=== PATIENT | male | born 1970 | race American Indian/Alaskan Native ===

== ENCOUNTER 2022-06-01 18:37 | Emergency (ER) | payer BC, OTHER ==
[~2022-06-01] VITALS: Ht 170.2 cm; Wt 89.2 kg
[2022-06-01] MEDS ORDERED: ATOR1TAB21 PO (18:44)
[2022-06-01] MEDS ORDERED: LEVO-89 PO (18:44)
[2022-06-01] MEDS ORDERED: CHLO125TA PO (18:44)
[2022-06-01] MEDS ORDERED: ATEN50TA2 PO (18:44)
[2022-06-01 19:24] VITALS: BP 147/88
[2022-06-01 19:46] LABS: BASO # 0.1 10^3/uL (0.0-0.2); BASO % 0.5 % (0.0-1.0); EOS # 0.2 10^3/uL (0.0-0.5); EOS % 2.3 % (0.0-3.0); HEMATOCRIT 42.6 % (42.0-52.0); HEMOGLOBIN 14.8 g/dl (13.5-17.5); LYMPH % 10.7 % (24.0-44.0); MEAN CORPUSCULAR HEMOGLOBIN 31.3 pg (27.0-33.0); MEAN CORPUSCULAR HGB CONC 34.7 g/dl (32.0-36.5); MEAN CORPUSCULAR VOLUME 90.1 fl (80.0-96.0); MONO # 0.6 10^3/uL (0.0-0.8); MONO % 5.8 % (2.0-8.0); NEUTROPHILS # 7.6 10^3/uL (1.5-8.5); NEUTROPHILS % 80.1 % (36.0-66.0); PLATELET COUNT, AUTOMATED 282 10^3/uL (150-450); RED BLOOD COUNT 4.73 10^6/uL (4.30-6.10); WHITE BLOOD COUNT 9.5 10^3/uL (4.0-10.0)
[2022-06-01 19:58] LABS: INR 0.92; PROTHROMBIN TIME 12.6 SECONDS (12.5-14.5)
[2022-06-01 19:59] LABS: PARTIAL THROMBOPLASTIN TIME 24.9 SECONDS (24.8-34.2)
[2022-06-01 20:13] LABS: BLOOD UREA NITROGEN 15 MG/DL (7-18); CARBON DIOXIDE LEVEL 28 MEQ/L (21-32); CHLORIDE LEVEL 106 MEQ/L (98-107); CREATININE FOR GFR 0.92 MG/DL (0.70-1.30); GLOMERULAR FILTRATION RATE > 60.0 (>56); GLUCOSE, FASTING 121 MG/DL (70-100); SODIUM LEVEL 139 MEQ/L (136-145)
[2022-06-01 20:30] VITALS: BP 150/101
[2022-06-01] MEDS ORDERED: MECL1TAB31 PO (22:33)
== END 2022-06-01 23:23 | disposition home or self-care (01) ==
LOC: M ED 18:37
DX: H81.4 Vertigo of central origin (principal); I10 Essential (primary) hypertension; E03.9 Hypothyroidism, unspecified; Z79.810 Long term (current) use of selective estrogen receptor modulators (SERMs); Z79.83 Long term (current) use of bisphosphonates; Z79.899 Other long term (current) drug therapy

== ENCOUNTER → 2022-10-23 | Outpatient (REF) | payer BC, OTHER ==
[~2022-10-23] MED LIST: ATEN50TA2 PO; ATOR1TAB21 PO; CHLO125TA PO; LEVO-89 PO; MECL1TAB31 PO
[2022-10-23 12:45] LABS: IMMUNOGLOBULIN A 194.2 MG/DL (40-350); IRON (FE) 109 UG/DL (65-175); PERCENT SATURATION 32.2 % (19.7-50.0); TOTAL IRON BINDING CAPACITY 339 UG/DL (250-425)
[2022-10-23 12:48] LABS: FERRITIN 276.8 NG/ML (10.5-307.3)
[2022-10-23 13:09] LABS: HEPATITIS B SURFACE ANTIGEN NEGATIVE (NEGATIVE)
[2022-10-23 13:31] LABS: HEPATITIS B CORE ANTIBODY IGM NEGATIVE (NEGATIVE); HEPATITIS C VIRUS ABY INDEX 0.1 INDEX (<0.8)
[2022-10-25 14:09] LABS: ENDOMYSIAL ABY IgA Negative (Negative); HBV HBV DNA not detected IU/mL (.); TISSUE TRANSGLUTAMINASE IgA <2 U/mL (0-3)
== END ==
LOC: M LAB REF 11:58
PROVIDERS: ATTEND Internal Medicine
DX: R94.5 Abnormal results of liver function studies (principal)

== ENCOUNTER → 2022-12-06 | Outpatient (CLI) | payer BC, OTHER ==
[2022-12-06 16:56] LABS: PERCENT SATURATION 33.1 % (19.7-50.0)
[2022-12-06 16:59] LABS: FERRITIN 433.4 NG/ML (10.5-307.3)
[2022-12-11 17:07] LABS: A1A FOR PHENOTYPE 161 mg/dL (101-187); CERULOPLASMIN 22.5 mg/dL (16.0-31.0)
== END ==
LOC: M WUC 11:58
PROVIDERS: ATTEND Internal Medicine
DX: R74.01 Elevation of levels of liver transaminase levels (principal); E03.9 Hypothyroidism, unspecified

== ENCOUNTER → 2022-12-08 | Outpatient (CLI) | payer BC, OTHER | LOC: M RAD 07:42 | PROVIDERS: ATTEND Internal Medicine | DX: R94.5 Abnormal results of liver function studies (principal); K76.0 Fatty (change of) liver, not elsewhere classified ==

== ENCOUNTER 2023-04-18 11:13 | Emergency (ER) | payer BC, OTHER ==
[~2023-04-18] VITALS: Ht 167.6 cm; Wt 83.1 kg
[~2023-04-18 11:13] MED LIST changes: +MECL-209 PO; -MECL1TAB31 PO
[2023-04-18] MEDS ORDERED: NS 1,000 ML IV SCH (12:15)
[2023-04-18 12:17] LABS: BASO % 0.7 % (0.0-1.0); EOS # 0.1 10^3/uL (0.0-0.5); EOS % 2.1 % (0.0-3.0); HEMATOCRIT 46.2 % (42.0-52.0); HEMOGLOBIN 16.3 g/dl (13.5-17.5); LYMPH # 1.5 10^3/uL (1.5-5.0); LYMPH % 26.4 % (24.0-44.0); MEAN CORPUSCULAR HEMOGLOBIN 30.5 pg (27.0-33.0); MEAN CORPUSCULAR HGB CONC 35.3 g/dl (32.0-36.5); MEAN CORPUSCULAR VOLUME 86.4 fl (80.0-96.0); MONO # 0.3 10^3/uL (0.0-0.8); MONO % 5.5 % (2.0-8.0); NEUTROPHILS # 3.8 10^3/uL (1.5-8.5); PLATELET COUNT, AUTOMATED 324 10^3/uL (150-450); RED BLOOD COUNT 5.35 10^6/uL (4.30-6.10); WHITE BLOOD COUNT 5.8 10^3/uL (4.0-10.0)
[2023-04-18] MEDS ORDERED: PANTOPRAZOLE 40MG VIAL IV ONE (12:20)
[2023-04-18 12:29] LABS: BLOOD UREA NITROGEN 14 MG/DL (9-23); CARBON DIOXIDE LEVEL 27 MMOL/L (20-31); CHLORIDE LEVEL 103 MMOL/L (98-107); CK-MB VALUE MASS 1.8 NG/ML (<3.6); CPK CREATINE PHOSPHOKINASE 188 U/L (46-171); CREATININE FOR GFR 0.81 MG/DL (0.70-1.30); GLOMERULAR FILTRATION RATE > 60.0 (>56); GLUCOSE, FASTING 155 MG/DL (60-100); MB/CK RELATIVE INDEX 0.95 (< OR =4); SODIUM LEVEL 137 MMOL/L (136-145)
[2023-04-18] MEDS ORDERED: POTASSIUM CHLORIDE 10MEQ SR TABLET PO ONE (12:40)
[2023-04-18 12:55] LABS: PROTHROMBIN TIME 12.9 SECONDS (12.5-14.5)
[2023-04-18 12:58] LABS: D-DIMER QUANT < 0.27 ug/mL (<0.5)
[2023-04-18] MEDS ORDERED: KCL 10MEQ/100ML SWI (KRUN) 10 MEQ in IV 1 EA IV ONE (13:00)
[2023-04-18] MEDS ORDERED: PROT1TAB2 PO (13:27)
[2023-04-18] MEDS ORDERED: POTA10CA60 PO (13:27)
[2023-04-18 13:38] VITALS: BP 140/78; TEMP 98.7; O2SAT 98
== END 2023-04-18 13:40 | disposition home or self-care (01) ==
LOC: M ED 11:13
DX: R07.9 Chest pain, unspecified (principal); E87.6 Hypokalemia; K21.9 Gastro-esophageal reflux disease without esophagitis; I10 Essential (primary) hypertension; E78.5 Hyperlipidemia, unspecified; E03.9 Hypothyroidism, unspecified; Z79.02 Long term (current) use of antithrombotics/antiplatelets; Z79.899 Other long term (current) drug therapy
CPT/HCPCS: 71045; 80048; 82550; 82553; 84484; 85025; 85379; 85610; 93005; 93041; 94760; 96365; 96375; 99285; C9113

== ENCOUNTER 2023-04-23 12:14 | Day surgery (SDC) | payer BC, OTHER ==
[~2023-04-23] VITALS: Ht 167.6 cm; Wt 81.6 kg
[~2023-04-23 12:14] MED LIST changes: +NS 1,000 ML IV ONE; +POTA10CA60 PO; +PROT1TAB2 PO
[2023-04-23] MEDS ORDERED: LIDOCAINE 2% 100MG/5ML SDV (FOR ANES.) As Ordered ONE (12:28)
[2023-04-23] MEDS ORDERED: propofoL 200 MG/20 ML VIAL As Ordered ONE ×2 (12:28→13:51)
[2023-04-23 13:59] VITALS: TEMP 97.2
[2023-04-23 14:20] VITALS: BP 124/82; O2SAT 96
== END 2023-04-23 14:36 | disposition home or self-care (01) ==
LOC: M OPP 12:14
PROVIDERS: ATTEND Internal Medicine Gastroenterology
DX: D12.0 Benign neoplasm of cecum (principal); K57.30 Diverticulosis of large intestine without perforation or abscess without bleeding; K64.0 First degree hemorrhoids

== ENCOUNTER → 2024-01-11 | Outpatient (CLI) | payer BC ==
[~2024-01-11] MED LIST changes: -NS 1,000 ML IV ONE; -POTA10CA60 PO; +POTA10CA70 PO
== END ==
LOC: M RAD 13:41
PROVIDERS: ATTEND Internal Medicine
DX: R22.1 Localized swelling, mass and lump, neck (principal)

== ENCOUNTER 2024-03-16 22:32 | Emergency (ER) | payer BC ==
[~2024-03-16] VITALS: Ht 167.6 cm; Wt 88.7 kg
[2024-03-17 02:28] LABS: BASO # 0.1 10^3/uL (0.0-0.2); BASO % 0.6 % (0.0-1.0); EOS # 0.4 10^3/uL (0.0-0.5); EOS % 4.6 % (0.0-3.0); HEMATOCRIT 50.4 % (42.0-52.0); HEMOGLOBIN 17.4 g/dl (13.5-17.5); LYMPH # 2.7 10^3/uL (1.5-5.0); LYMPH % 28.6 % (24.0-44.0); MEAN CORPUSCULAR HEMOGLOBIN 30.2 pg (27.0-33.0); MEAN CORPUSCULAR HGB CONC 34.5 g/dl (32.0-36.5); MEAN CORPUSCULAR VOLUME 87.3 fl (80.0-96.0); MONO # 0.7 10^3/uL (0.0-0.8); MONO % 7.5 % (2.0-8.0); NEUTROPHILS # 5.6 10^3/uL (1.5-8.5); NEUTROPHILS % 58.5 % (36.0-66.0); PLATELET COUNT, AUTOMATED 346 10^3/uL (150-450); RED BLOOD COUNT 5.77 10^6/uL (4.30-6.10); WHITE BLOOD COUNT 9.5 10^3/uL (4.0-10.0)
[2024-03-17 02:57] LABS: ALBUMIN 4.5 G/DL (3.2-5.2); BILIRUBIN,DIRECT 0.2 MG/DL (<0.4); BILIRUBIN,TOTAL 0.7 MG/DL (0.3-1.2); TOTAL PROTEIN 7.5 G/DL (5.7-8.2)
[2024-03-17] MEDS: hydrALAZINE 20MG/ML 1ML VIAL IV STA ×2 (02:59→04:01)
[2024-03-17 04:01] VITALS: BP 186/122
[2024-03-17] MEDS ORDERED: AMLO1TAB25 PO (05:45)
[2024-03-17 06:01] VITALS: BP 147/99; TEMP 97.5; O2SAT 98
[2024-03-17] MEDS ORDERED: CARV25TA PO (17:33)
[2024-03-17] MEDS ORDERED: LISI10TA22 PO (17:34)
== END 2024-03-17 06:03 | disposition home or self-care (01) ==
LOC: M ED 22:32
DX: I16.0 Hypertensive urgency (principal); I10 Essential (primary) hypertension; K21.9 Gastro-esophageal reflux disease without esophagitis; E78.5 Hyperlipidemia, unspecified; H81.4 Vertigo of central origin; Z91.040 Latex allergy status; Z79.02 Long term (current) use of antithrombotics/antiplatelets; Z79.811 Long term (current) use of aromatase inhibitors; Z79.899 Other long term (current) drug therapy
CPT/HCPCS: 36415; 70450; 80047; 80076; 85025; 93005; 99284; J0360

== ENCOUNTER 2024-03-17 12:44 | Emergency (ER) | payer BC ==
[~2024-03-17] VITALS: Ht 167.6 cm; Wt 88.2 kg
[~2024-03-17 12:44] MED LIST changes: +AMLO1TAB25 PO
[2024-03-17] MEDS: CARVedilol 12.5 MG TAB PO ONE (15:07)
[2024-03-17 15:33] LABS: BASO % 0.4 % (0.0-1.0); EOS # 0.1 10^3/uL (0.0-0.5); EOS % 1.3 % (0.0-3.0); HEMATOCRIT 50.4 % (42.0-52.0); HEMOGLOBIN 17.5 g/dl (13.5-17.5); LYMPH # 1.5 10^3/uL (1.5-5.0); LYMPH % 16.7 % (24.0-44.0); MEAN CORPUSCULAR HEMOGLOBIN 30.6 pg (27.0-33.0); MEAN CORPUSCULAR HGB CONC 34.7 g/dl (32.0-36.5); MEAN CORPUSCULAR VOLUME 88.3 fl (80.0-96.0); MONO # 0.6 10^3/uL (0.0-0.8); MONO % 6.4 % (2.0-8.0); NEUTROPHILS # 6.7 10^3/uL (1.5-8.5); PLATELET COUNT, AUTOMATED 346 10^3/uL (150-450); RED BLOOD COUNT 5.71 10^6/uL (4.30-6.10)
[2024-03-17] MEDS ORDERED: ISOVUE-370 76% 100ML VIAL As Ordered ONE (15:39)
[2024-03-17 16:01] LABS: CK-MB VALUE MASS 2.1 NG/ML (<3.6)
[2024-03-17 16:04] LABS: ALBUMIN 4.3 G/DL (3.2-5.2); ALKALINE PHOSPHATASE 107 U/L (46-116); ALT/SGPT 90 U/L (7.0-40); AST/SGOT 36 U/L (<34); BILIRUBIN,DIRECT 0.3 MG/DL (<0.4); BILIRUBIN,TOTAL 0.8 MG/DL (0.3-1.2); BLOOD UREA NITROGEN 12 MG/DL (9-23); CALCIUM LEVEL 9.7 MG/DL (8.5-10.1); CARBON DIOXIDE LEVEL 27 MMOL/L (20-31); CHLORIDE LEVEL 105 MMOL/L (98-107); CPK CREATINE PHOSPHOKINASE 135 U/L (46-171); CREATININE FOR GFR 0.76 MG/DL (0.70-1.30); GLOMERULAR FILTRATION RATE > 60.0 (>56); GLUCOSE, FASTING 106 MG/DL (60-100); MB/CK RELATIVE INDEX 1.55 (< OR =4); POTASSIUM SERUM 3.9 MMOL/L (3.5-5.1); SODIUM LEVEL 140 MMOL/L (136-145); TOTAL PROTEIN 7.7 G/DL (5.7-8.2)
[2024-03-17 16:06] LABS: THYROID STIMULATING HORMONE 3.142 uIU/ML (0.55-4.78)
[2024-03-17 16:35] VITALS: BP 145/98
[2024-03-17 16:40] LABS: CK-MB VALUE MASS 1.7 NG/ML (<3.6)
[2024-03-17 16:41] LABS: MB/CK RELATIVE INDEX 1.53 (< OR =4)
[2024-03-17] MEDS ORDERED: CARV25TA PO (17:33)
[2024-03-17] MEDS ORDERED: LISI10TA22 PO (17:34)
[2024-03-17 17:45] VITALS: BP 129/88; TEMP 97.7; O2SAT 99
== END 2024-03-17 17:51 | disposition home or self-care (01) ==
LOC: M ED 12:44
DX: R51.9 Headache, unspecified (principal); I10 Essential (primary) hypertension; K76.0 Fatty (change of) liver, not elsewhere classified; E11.9 Type 2 diabetes mellitus without complications; E78.5 Hyperlipidemia, unspecified; Z86.79 Personal history of other diseases of the circulatory system; Z91.040 Latex allergy status; Z79.02 Long term (current) use of antithrombotics/antiplatelets; Z79.811 Long term (current) use of aromatase inhibitors; Z79.899 Other long term (current) drug therapy
CPT/HCPCS: 36415; 70450; 71045; 71275; 74177; 80047; 80048; 80076; 82550; 82553; 83735; 84443; 84484; 85025; 93005; 93041; 94760; 99285; Q9967

== ENCOUNTER → 2024-04-30 | Outpatient (CLI) | payer BC ==
[~2024-04-30] MED LIST changes: +CARV25TA PO; +LISI10TA22 PO
== END ==
LOC: M RAD 06:28
PROVIDERS: ATTEND Internal Medicine
DX: K82.4 Cholesterolosis of gallbladder (principal); K74.00 Hepatic fibrosis, unspecified

== ENCOUNTER → 2024-06-12 | Outpatient (CLI) | payer BC | LOC: M RAD 10:05 | PROVIDERS: ATTEND Internal Medicine | DX: R05.9 Cough, unspecified (principal); R06.2 Wheezing ==